=== PATIENT | male | born 1950 | race Caucasian/White ===

== ENCOUNTER 2017-06-09 13:35 | Outpatient (CLI) | payer MEDICARE | END 2017-06-09 13:36 | disposition home or self-care (01) | LOC: BICCT 13:35 | PROVIDERS: ATTEND Thoracic Surgery (Cardiothoracic Vascular Surgery) | DX: I71.2 Thoracic aortic aneurysm, without rupture (principal); I71.4 Abdominal aortic aneurysm, without rupture; N28.89 Other specified disorders of kidney and ureter | CPT/HCPCS: 82565 ==

== ENCOUNTER 2017-12-22 14:53 | Outpatient (CLI) | payer MEDICARE ==
--- NOTE | 2017-12-22 16:04 | RAD ---
LUMBAR SPINE FOUR VIEWS INCLUDING FLEXION AND EXTENSION AND LATERAL VIEWS: 12/22/17 COMPARISON: 10/08/16. HISTORY: 67-year-old male with history of lumbar region radiculopathy, chronic sciatica. There is again noted to be some abnormal translation between flexion and extension at L3-4. Severe sc lerosis and narrowing of the L4-5 disc which is stable. Postop laminectomy changes at L4 and L5. IMPRESSION: Abnormal translation between flexion and extension at L3-4. Postop changes at L4 and L5. POS: TPC
== END 2017-12-22 14:54 | disposition home or self-care (01) ==
LOC: SCSMRI 14:53
PROVIDERS: ATTEND Nurse Practitioner Family
DX: M54.16 Radiculopathy, lumbar region (principal); Z98.890 Other specified postprocedural states
CPT/HCPCS: 72120

== ENCOUNTER 2018-01-11 15:45 | Outpatient (CLI) | payer MEDICARE ==
--- NOTE | 2018-01-11 18:28 | MRI ---
MRI OF LUMBAR SPINE WITHOUT CONTRAST: 01/11/18 COMPARISON: 01/05/12. HISTORY: Lumbar radiculopathy. Right leg sciatica, x3 years. FINDINGS: There is type I Modic change at the anterior L4-5 disc space. Lumbar spine vertebral body height is m aintained. There is no fracture. There is 3 mm of anterolisthesis of L3 upon L4. With the exception o f the area of type I Modic change, appropriate T1 marrow signal intensity of the lumbar vertebrae. No significant STIR hyperintensities to suggest edema from fracture. No MR evidence of ligamentous inju ry. There are multiple T2 hyperintensities in the left and right kidney compatible with bilateral renal c ortical cysts. Symmetric signal intensity of the psoas muscles. Conus medullaris terminates at the L1-2 disc space. T12-L1: Adequate disc hydration. No significant loss of disc space height. No significant central can al stenosis or neural foraminal narrowing. L1-L2: Adequate disc hydration. No significant No significant central canal stenosis. Neural foramina are patent. L2-L3: Desiccation with mild loss of disc space height. Generalized disc bulge. Mild central canal st enosis. Right neural foramen is patent. Moderate left foraminal narrowing. L3-L4: Mild loss of disc space height. Broad based disc bulge, ligamentum flavum thickening and facet hypertrophy result in mild central canal stenosis. Moderate right and mild to moderate left foramina l narrowing. L4-L5: Severe loss of disc space height. There is a broad based disc bulge without significant centra l canal stenosis. Posterior laminectomy defect is identified. Severe right and moderate left foramina l narrowing. L5-S1: Desiccation with severe loss of disc space height. There is abnormal signal intensity in the l eft subarticular zone. Disc material and/or scar tissue partially obscures the traversing left S1 ner ve root. There are laminectomy defects. There is moderate right and severe left neural foraminal narr owing. IMPRESSION: 1. Postoperative changes at L4-L5 and L5-S1. 2. Type I Modic change at L4-L5. 3. No high grade central canal stenosis. 4. There is abnormal signal intensity in the left subarticular zone at L5-S1 with some mass effe ct and obscuration of the traversing left S1 nerve root. Abnormal signal intensity may be due to a co mbination of scar and/or disc material. Postcontrast imaging would be beneficial. 5. Severe foraminal narrowing at multiple levels as described above. POS: SRIDHAR
== END 2018-01-11 15:46 | disposition home or self-care (01) ==
LOC: TBSIIMAG 15:45
PROVIDERS: ATTEND Nurse Practitioner Family
DX: M54.16 Radiculopathy, lumbar region (principal); M48.061 Spinal stenosis, lumbar region without neurogenic claudication; M48.07 Spinal stenosis, lumbosacral region; Z98.890 Other specified postprocedural states
CPT/HCPCS: 72148

== ENCOUNTER 2018-04-05 00:13 | Outpatient (CLI) | payer MEDICARE ==
[2018-04-05 11:31] LABS: Hemoglobin 13.2 g/dL (14.0-18.0); Mean Corpuscular HGB CONC 33.6 g/dL (32.0-36.0); Mean Corpuscular Hemoglobin 33.1 pg (27.0-31.0); Mean Corpuscular Volume 98.4 fL (78.0-98.0); Mean Platelet Volume 6.4 fL (7.4-10.4); Platelet Count 185 thou/uL (130-400); RBC Distribution Width 11.5 % (11.5-14.5); Red Blood Cell (RBC) Count 4.01 mill/uL (4.70-6.10)
[2018-04-05 11:49] LABS: Anion Gap 15 mmol/L (10-20); BUN (Urea Nitrogen) 25 mg/dL (8.4-25.7); Calc. Creatinine Clearance 0 mL/min (70-130); Calcium 9.7 mg/dL (7.8-10.44); Carbon Dioxide 23 mmol/L (23-31); Chloride 106 mmol/L (98-107); Estimated GFR-MDRD 52; Glucose 91 mg/dL (80-115); Potassium 4.3 mmol/L (3.5-5.1); Sodium 140 mmol/L (136-145)
--- NOTE | 2018-04-06 08:03 | EKG ---
Test Reason : Blood Pressure : / mmHG Vent. 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
== END 2018-04-05 00:14 | disposition home or self-care (01) ==
LOC: LABBT 00:13
PROVIDERS: ATTEND Neurological Surgery
DX: Z01.818 Encounter for other preprocedural examination (principal); M54.16 Radiculopathy, lumbar region
CPT/HCPCS: 80048; 85027; 93005; 93010

== ENCOUNTER 2018-04-08 06:44 | Day surgery (SDC) | payer MEDICARE ==
[2018-04-05 11:14] VITALS: BMI 33.0
--- NOTE | 2018-04-07 14:33 | HP ---
HISTORY OF PRESENT ILLNESS: Mr. Young is a very pleasant 67-year-old man here today for evaluation of mostly right-sided L4 pain and at times nonspecific pain to the left lower extremity as well, described to be L4-L5. He reports that the right-sided pain happens much more frequently, and that actually wake him up at night at times. He has an MRI severe right-sided foraminal stenosis at L4 as well as areas of degenerative disk disease from L3-S1, areas of central decompression and scarring present from L4-S1. He has received 1 epidural steroid injection with Dr[address] Agustin, that resulted in 70% improvement for roughly 1 week. PAST MEDICAL HISTORY: Significant for hypercholesterolemia, unspecified intestinal disease, hypertension, osteoarthritis. PAST SURGICAL HISTORY: Lumbar spinal decompression. CURRENT MEDICATIONS: Dolobid, Toprol, simvastatin. ALLERGIES: NO KNOWN DRUG ALLERGIES. PHYSICAL EXAMINATION: The patient is alert and oriented x3. Gait is mildly antalgic. Lower extremity motor exam reveals 5/5 strength in bilateral lower extremities. ASSESSMENT: Lumbar radiculopathy. PLAN: Dr. Staton met with the patient, reviewed imaging, and advocated for right L4 facetectomy and decompression. He explained to the patient the risks, benefits, and alternatives to the procedure. The patient expressed understanding and elected to move forward with surgery as discussed. I do believe the patient is mentally competent and capable of making medical decisions for himself. We will move forward with surgery as planned. Job ID: [id number]
[2018-04-08] MEDS ORDERED: Bupivacaine HCl 0.5%/Epinephrine 1:200,000/PF 30 ml Vial ONE (08:15)
[2018-04-08] MEDS ORDERED: Thrombin 5000 UNITS/5 ML VIAL ONE (08:16)
[2018-04-08] MEDS ORDERED: Fentanyl 250 MCG/5 ML VIAL ONE (08:19)
--- NOTE | 2018-04-08 10:31 | OP ---
DATE OF PROCEDURE: 04/08/2018 GREENSKEEPER: Saleem Cuellar PA-C. INDICATION: Pain. DIAGNOSIS: Right L4 radiculopathy. PROCEDURES PERFORMED: Right L4 facetectomy and foraminotomy. ANESTHESIA: General. DESCRIPTION OF PROCEDURE: The patient was brought into the operating room, placed under general anesthesia. He was flipped from the supine to prone position on the operating room table. The previous linear incision was identified and prepped and draped in usual sterile fashion. Following an appropriate preoperative pause, the incision was created. The underlying soft tissues were swept away from midline. After dissecting through scar tissue, identified a bone defect near the foramina of L4. High-speed cutting drill bit as well as 2, 3, and 4 mm Kerrisons were used to remove most of the facet joint in order to decompress the exiting nerve root. There was a superior articulating component of the facet beneath protruding into the foramina as well as a significant amount of scar tissue. At the completion of procedure, the L4 nerve root was well decompressed as it rounded the medial aspect of the pedicle as well as throughout the length of the foramen. The wound was then irrigated. Hemostasis was maintained throughout. The wound was then closed in anatomic layers and a pressure dressing was applied. There were no known procedural complications. Job ID: [id number]
[2018-04-08] MEDS ORDERED: Tamsulosin HCl 0.4 MG CAP ONE (11:09)
[2018-04-08] MEDS ORDERED: Rocuronium Bromide 10 MG/ML (10ML VIAL) ONE (15:40)
[2018-04-08] MEDS ORDERED: PROPOFOL 200 MG/20 ML VIAL ONE (15:40)
[2018-04-08] MEDS ORDERED: Dexamethasone 20 MG/5 ML VIAL ONE (15:40)
[2018-04-08] MEDS ORDERED: Ondansetron PF 4 MG/2 ML Vial ONE (15:40)
[2018-04-08] MEDS ORDERED: Glycopyrrolate 0.2 MG/ML 5 ML SYRINGE ONE (15:40)
[2018-04-08] MEDS ORDERED: PHENYLEPHRINE-NS 100 MCG/ML 10 ML SYRINGE ONE (15:40)
[2018-04-08] MEDS ORDERED: ePHEDrine 50 MG/ML VIAL ONE (15:40)
[2018-04-08] MEDS ORDERED: Lidocaine 1% PF 5 ML VIAL ONE (15:40)
== END 2018-04-08 13:20 | disposition home or self-care (01) ==
LOC: SDC 06:44
PROVIDERS: ATTEND Neurological Surgery
PROC: 01NB0ZZ Release Lumbar Nerve, Open Approach (ICD-10-PCS; principal; 2018-04-08)
DX: M51.16 Intervertebral disc disorders with radiculopathy, lumbar region (principal); M48.061 Spinal stenosis, lumbar region without neurogenic claudication; E78.00 Pure hypercholesterolemia, unspecified; M19.90 Unspecified osteoarthritis, unspecified site; I10 Essential (primary) hypertension; Z79.82 Long term (current) use of aspirin; Z79.899 Other long term (current) drug therapy
CPT/HCPCS: 76000; J0670; J3010

== ENCOUNTER 2018-11-09 09:28 | Outpatient (CLI) | payer MEDICARE ==
--- NOTE | 2018-11-09 11:19 | RAD ---
2 VIEWS LEFT HIP: Date: 11/09/18 COMPARISON: None. HISTORY: Left hip pain after swinging a golf club 4 weeks ago. FINDINGS: 2 views of the left hip show no evidence of acute fracture or dislocation. No degenerative changes ar e seen. IMPRESSION: No evidence of acute osseous abnormality. POS: TPC
== END 2018-11-09 09:29 | disposition home or self-care (01) ==
LOC: SCSRAD 09:28
PROVIDERS: ATTEND Family Medicine
DX: M25.552 Pain in left hip (principal)

== ENCOUNTER 2019-07-03 10:08 | Outpatient (CLI) | payer MEDICARE ==
--- NOTE | 2019-07-03 12:15 | RAD ---
TWO VIEWS LUMBOSACRAL SPINE: COMPARISON: None. HISTORY: Lumbar radicular pain. FINDINGS: Two views of the lumbosacral spine show grade I anterolisthesis of L3 on L4. The L4-5 intervertebral disk is severe narrowed with moderate surrounding osteophytes. There is also narrowing of the L5-S1 intervertebral disk with surrounding osteophyte. Posterior facet arthrosis is seen in the lower lum bosacral spine. Vascular calcifications are seen in the aorta. IMPRESSION: Degenerative changes of the lumbar spine without acute osseous abnormality. POS: EAA
== END 2019-07-03 10:09 | disposition home or self-care (01) ==
LOC: SCSRAD 10:08
PROVIDERS: ATTEND Family Medicine
DX: M47.26 Other spondylosis with radiculopathy, lumbar region (principal)
CPT/HCPCS: 36415; 72100; 80053; 80061; 81001; 85025; G0103

== ENCOUNTER 2019-08-07 14:37 | Outpatient (CLI) | payer MEDICARE ==
--- NOTE | 2019-08-07 17:42 | MRI ---
MRI LUMBAR SPINE WITH AND WITHOUT CONTRAST: Indications: Low back pain. History of back surgery. Comparison: Lumbar MRI 01-11-18 FINDINGS: Post op changes again noted at L4-5 and L5-S1. There are severe degenerative disc changes at L3-4, L4 -5, and L5-S1 with degenerative disc and endplate changes again seen. The anterolisthesis at L3-4 is again noted and does not appear significantly changed. Disc protrusion at these levels are again note d. Findings at each level described: L1-2: No significant disc abnormality. No central canal or foraminal stenosis. L2-3: Diffuse disc bulge flattens the thecal sac. Moderate facet and ligamentous hypertrophy posterio r epidural fat. Mild central canal stenosis which is stable. L3-4: Anterolisthesis. Diffuse disc bulge. Facet hypertrophy. Mild to moderate central canal stenosis which is stable. Bilateral foraminal stenosis. L4-5: Posterior laminectomy change on the right. Broad based disc bulge. Facet hypertrophy. Mild cent ral canal stenosis. Bilateral foraminal stenosis, more severe on the right. L5-S1: Posterior laminectomy change. Facet hypertrophy. Diffuse disc bulge with a posterior listhesis which is unchanged. Mild to moderate central canal stenosis. Bilateral foraminal stenosis, severe on the left, due to disc osteophyte complex and facet hypertrophy. IMPRESSION: 1. Degenerative and post-operative changes with disc bulge and listhesis at L3-4, L4-5, and L5-S1 lev els. Findings at these levels appear stable from 01-11-18 and they are described above. POS: CHENCHO
== END 2019-08-07 14:38 | disposition home or self-care (01) ==
LOC: TBSIIMAG 14:37
PROVIDERS: ATTEND Neurological Surgery
DX: M54.5 Low back pain (principal); M47.816 Spondylosis without myelopathy or radiculopathy, lumbar region; M43.16 Spondylolisthesis, lumbar region; M43.17 Spondylolisthesis, lumbosacral region; M51.9 Unspecified thoracic, thoracolumbar and lumbosacral intervertebral disc disorder; M48.07 Spinal stenosis, lumbosacral region; M48.061 Spinal stenosis, lumbar region without neurogenic claudication; M25.78 Osteophyte, vertebrae; Z98.890 Other specified postprocedural states
CPT/HCPCS: 72158; 82565

== ENCOUNTER 2021-10-06 08:49 | Outpatient (CLI) | payer MEDICARE ==
[2021-10-06] MEDS ORDERED: Iopamidol 370 76% 100 ML VIAL ONE (11:25)
== END 2021-10-06 08:50 | disposition home or self-care (01) ==
LOC: CT 08:49
PROVIDERS: ATTEND Thoracic Surgery (Cardiothoracic Vascular Surgery)
DX: I71.2 Thoracic aortic aneurysm, without rupture (principal); I71.03 Dissection of thoracoabdominal aorta; I77.79 Dissection of other specified artery; I77.73 Dissection of renal artery; I25.10 Atherosclerotic heart disease of native coronary artery without angina pectoris; N28.1 Cyst of kidney, acquired
CPT/HCPCS: 71275; 74174; 82565; Q9967

== ENCOUNTER 2023-08-02 11:25 | Observation (INO) | payer MEDICARE ==
[2023-08-02 12:39] LABS: #Basophils Less than 0.03 10x3/uL (0.0-0.2); %Basophils 0.4 % (0.0-1.0); %Eosinophils 2.9 % (0.0-10.0); %Lymphocytes 39.8 % (21.0-51.0); %Monocytes 7.8 % (0.0-10.0); %Neutrophils 48.9 % (42.0-75.0); Hematocrit 37.6 % (42.0-52.0); Hemoglobin 12.8 g/dL (14.0-18.0); Mean Corpuscular Hemoglobin 31.9 pg (27.0-31.0); Mean Corpuscular Volume 93.8 fL (78.0-98.0); Mean Platelet Volume 9.1 fL (7.4-10.4); Platelet Count 188 10x3/uL (130-400); Red Blood Cell (RBC) Count 4.01 mill/uL (4.70-6.10)
[2023-08-02 12:55] LABS: Troponin I 0.011 ng/mL (< 0.028)
[2023-08-02 13:00] LABS: ALT (SGPT) 28 U/L (8-55); AST (SGOT) 60 U/L (5-34); Albumin 3.7 g/dL (3.4-4.8); Alkaline Phosphatase 38 U/L (40-110); Anion Gap 16 mmol/L (10-20); BUN (Urea Nitrogen) 18 mg/dL (8.4-25.7); Bilirubin, Total 0.9 mg/dL (0.2-1.2); Calc. Creatinine Clearance 0 mL/min (70-130); Calcium 9.5 mg/dL (7.8-10.44); Carbon Dioxide 25 mmol/L (23-31); Chloride 108 mmol/L (98-107); Estimated GFR 52; Globulin 3.4 g/dL (2.4-3.5); Glucose 117 mg/dL (83-110); Potassium 3.7 mmol/L (3.5-5.1); Protein, Total 7.1 g/dL (5.8-8.1); Sodium 145 mmol/L (136-145)
[2023-08-02] MEDS ORDERED: Furosemide 40 MG (4 mL) VIAL ONE (14:42)
[2023-08-02] MEDS ORDERED: Acetaminophen 325 MG TAB PO PRN (16:02)
[2023-08-02] MEDS ORDERED: HYDROcodone/Acetaminophen 5/325 mg Tablet PO PRN (16:02)
[2023-08-02] MEDS ORDERED: Potassium Chloride 20 MEQ TAB ONE (17:26)
[2023-08-02] MEDS ORDERED: Electrolyte Replacement Protocol FS SCH (17:30)
[2023-08-02] MEDS: Potassium Chloride 20 MEQ TAB PO SCH (17:32)
[2023-08-02 17:41] LABS: Magnesium 1.6 mg/dL (1.6-2.6)
[2023-08-02 17:48] VITALS: BMI 36.0
[2023-08-02 17:48] LABS: Troponin I 0.013 ng/mL (< 0.028)
[2023-08-02] MEDS ORDERED: Magnesium Sulfate 4 GM in Sodium Chloride 0.9% 250 ML 250 ML IVPB SCH (18:00)
[2023-08-02] MEDS: Magnesium Sulfate In Water 4 GM in Premix 1 BAG IVPB SCH (18:34)
[2023-08-02 22:37] LABS: Troponin I 0.011 ng/mL (< 0.028)
[2023-08-03 04:00] LABS: #Basophils 0.04 10x3/uL (0.0-0.2); %Basophils 0.6 % (0.0-1.0); %Eosinophils 2.4 % (0.0-10.0); %Lymphocytes 48.3 % (21.0-51.0); %Monocytes 10.4 % (0.0-10.0); %Neutrophils 38.2 % (42.0-75.0); Hematocrit 37.3 % (42.0-52.0); Hemoglobin 12.7 g/dL (14.0-18.0); Mean Corpuscular Hemoglobin 32.2 pg (27.0-31.0); Mean Corpuscular Volume 94.4 fL (78.0-98.0); Mean Platelet Volume 8.8 fL (7.4-10.4); Platelet Count 183 10x3/uL (130-400); RBC Distribution Width 11.9 % (11.5-14.5); Red Blood Cell (RBC) Count 3.95 mill/uL (4.70-6.10)
[2023-08-03 05:29] LABS: Anion Gap 15 mmol/L (10-20); BUN (Urea Nitrogen) 20 mg/dL (8.4-25.7); Calc. Creatinine Clearance 60 mL/min (70-130); Calcium 9.5 mg/dL (7.8-10.44); Carbon Dioxide 26 mmol/L (23-31); Chloride 104 mmol/L (98-107); Estimated GFR 44; Glucose 90 mg/dL (83-110); Potassium 3.8 mmol/L (3.5-5.1); Sodium 141 mmol/L (136-145)
[2023-08-03 08:55] VITALS: BP 164/88; TEMP 97.4
[2023-08-03] MEDS: Furosemide 40 MG TAB PO SCH (08:57)
[2023-08-03] MEDS: Aspirin 81 mg Enteric Coated Tablet PO SCH (08:57)
== END 2023-08-03 12:12 | disposition home or self-care (01) ==
LOC: ERS 11:25 → ERHOLD 15:47 → 2SE 18:06
PROVIDERS: ADMIT Family Medicine; ATTEND Internal Medicine
DX: R06.02 Shortness of breath (principal); I13.0 Hypertensive heart and chronic kidney disease with heart failure and stage 1 through stage 4 chronic kidney disease, or unspecified chronic kidney disease; I50.9 Heart failure, unspecified; N18.4 Chronic kidney disease, stage 4 (severe); E78.5 Hyperlipidemia, unspecified; Z79.82 Long term (current) use of aspirin; Z79.899 Other long term (current) drug therapy
CPT/HCPCS: 71045; 71275; 80048; 83735; 83880; 84484 ×2; 85025; 85379; 93005; 93970; 96374; 96375; 99285; G0378 ×3; J1940; J3475; 36415; 80053; 84443